=== PATIENT | female | born 1990 | race Caucasian/White ===

== ENCOUNTER 2017-11-08 22:43 | Emergency (ER) | payer OTHER ==
[~2017-11-08] VITALS: Ht 152.4 cm; Wt 69.8 kg
[2017-11-08 22:55] VITALS: Ht 152.4 cm; Wt 69.8 kg
[2017-11-09 00:18] VITALS: BP 112/71
== END 2017-11-09 00:18 | disposition short-term general hospital (02) ==
LOC: ED 22:43
DX: O60.03 Preterm labor without delivery, third trimester (principal); Z3A.34 34 weeks gestation of pregnancy
CPT/HCPCS: J7030